=== PATIENT | female | born 1950 | race Caucasian/White ===

== ENCOUNTER 2019-03-06 12:11 | Inpatient (IN) ==
--- NOTE | 2019-03-06 13:14 | Diag Imaging Result Doc PS360 ---
EXAM: CHEST-2 VIEWS INDICATION: SOB TECHNIQUE: 2 views COMPARISON: 04/29/2015 FINDINGS: There is evidence of prior granulomatous disease, stable. There is mild scarring versus atelectasis at the left lung base. The right lung is clear. There is minimal blunting of the left costophrenic angle suggesting trace fluid versus chronic pleural scarring. There is prominent aneurysmal dilation of the thoracic aorta. An aortic stent is in place. There are new median sternotomy wires. Cardiac silhouette is borderline prominent. IMPRESSION: 1.Minimal left basilar atelectasis versus scarring and a possible trace effusion on the left. 2.Marked aneurysmal dilation of the thoracic aorta with a stent graft repair. Electronically signed by Ulises Quigley 03/06/2019 1:12 PM
[2019-03-06 15:29] LABS: BASO# 0.03 X1000 (0.0-0.2); BASO% 0.4 % (0.0-0.8); EOS# 0.19 X1000 (0.0-0.7); EOS% 2.5 % (0.0-10.0); HEMATOCRIT 44.6 % (37.0-47.0); LYMPH# 1.52 X1000 (1.2-3.4); LYMPH% 19.9 % (20.5-51.1); MCHC 31.4 g/dL (33-37); MCV 85.9 FL (81-99); MONO% 7.9 % (1.7-9.3); MPV 11.7 FL (7.4-10.4); NEUT% 69.3 % (42.2-75.2); PLT 187 X1000 (130-400); RBC 5.19 XMIL (4.2-5.4); RDW 18.1 % (11.5-14.5); WBC 7.64 X1000 (4.8-10.8)
[2019-03-06 15:34] LABS: INR 1.09; PROTIME 14.9 Seconds (11.0-16.0)
[2019-03-06 15:45] LABS: HEMOGLOBIN A1C 5.3 % (4.8-6.0)
[2019-03-06 15:51] LABS: ALB/GLOB RATIO 1.2; ALBUMIN 4.2 g/dL (3.5-5.0); CALCIUM 9.3 mg/dL (8.8-10.2); POTASSIUM 4.8 mmol/L (3.5-5.1); TOTAL BILIRUBIN 0.68 mg/dL (0.20-1.00); TOTAL PROTEIN 7.8 g/dL (6.3-8.3)
[2019-03-06 16:08] LABS: ALLEN TEST NO; BE 2.1 mmoll (-3.0-3.0); BLOOD TYPE ARTERIAL; HCO3-(ACT) 26.4 mmoll (20.0-26.0); METHB 0.5 % (0.0-1.5); O2HB 91.7 % (95.0-99.0); PCO2(98.6) 47 mmHg (35-45); PO2(98.6) 67 mmHg (60-100); SAMPLE BLOOD; SAO2 94.9 % (95.0-100.0); THB 11.6 g/dL (11.5-17.4); pH(98.6) 7.38 (7.35-7.45)
[2019-03-06 16:09] LABS: MODALITY ROOM AIR
--- NOTE | 2019-03-06 16:22 | EKG Report ---
Test Performed on : 03/06/2019 4:03:36 PM Test Reason : chest pain Blood Pressure : / mmHG Vent. Rate : 067 BPM Atrial Rate : 067 BPM P-R Int : 206 ms QRS Dur : 088 ms QT Int : 412 ms P-R-T Axes : 085 017 166 degrees QTc Int : 435 ms Normal sinus rhythm. Moderate voltage criteria for LVH, may be normal variant ST & T wave abnormality, consider inferolateral ischemia Abnormal ECG When compared with ECG of 29-APR-2015 13:52, ST now depressed in Lateral leads T wave inversion now evident in Anterolateral leads Confirmed by Jean Claude COSTA, Tyshawn Leblanc ([id number]) on 03/07/2019 10:57:14 AM
--- NOTE | 2019-03-06 17:03 | Diag Imaging Result Doc PS360 ---
EXAM: CT THORAX W/CONTRAST HISTORY: pneumonia TECHNIQUE: CT chest with intravenous contrast COMPARISON: 04/29/2015 FINDINGS: Trace pleural fluid. There is an aortic stent and sternal wires present. The proximal descending thoracic aorta measures 7.7 cm in AP diameter and 8.5 cm in transverse diameter. This has increased from 5.6 x 5.3 cm. The distal descending thoracic aorta measures 9.1 cm in maximum AP diameter and 8.4 cm in maximum transverse diameter. This has increased from prior measurements of 7.4 x 6.8 cm. No contrast outside of the stent. No pulmonary emboli. Mild cardiomegaly. There calcified mediastinal nodes. There is left basilar atelectasis. No pneumonia. IMPRESSION: 1.No infiltrates 2.Interval increase in the size of the descending thoracic aorta This exam was performed using automated exposure control, adjustment of mA or kV according to patient size, and/or use of iterative reconstruction technique. Electronically signed by John Joseph 03/06/2019 5:01 PM
[2019-03-06] MEDS: LASIX IV SCH (21:20)
[2019-03-06] MEDS: CARAFATE PO SCH (21:20)
[2019-03-06] MEDS: PRAVACHOL PO SCH (21:20)
[2019-03-06] MEDS: LOVENOX SUBQ SCH (21:20)
[2019-03-06] MEDS: VASOTEC IV SCH (21:20)
--- NOTE | 2019-03-06 21:58 | CONSULTATION ---
DATE OF CONSULTATION: 03/06/2019 IMPRESSION: 1. Congestive heart failure, predominantly right sided, with elevated central venous pressure. Echocardiography indicates moderate to severe pulmonary hypertension. Severe left ventricular hypertrophy demonstrated with estimated left ventricular ejection fraction at least 75%. There is moderate mitral regurgitation and moderate tricuspid regurgitation. 2. Thoracic and abdominal aortic aneurysm. The patient is status post multiple endovascular stent procedures. 3. Hypertensive cardiovascular disease with left ventricular hypertrophy. 4. Minimal coronary atherosclerosis by previous coronary angiography in 2007. 5. Chronic obstructive pulmonary disease. 6. Chronic cigarette use. 7. Hyperlipidemia. RECOMMENDATIONS: 1. Diurese with intravenous Lasix. 2. Smoking cessation strongly advised. HISTORY OF PRESENT ILLNESS: This 69-year-old white female with past history of hypertensive cardiovascular disease with left ventricular hypertrophy, thoracic and abdominal aortic aneurysm treated with multiple endovascular stent procedures, hyperlipidemia, minimal coronary atherosclerosis, and chronic cigarette use as well as COPD, was admitted with progressive lower extremity swelling over the past couple of months, with more recent development of increasing dyspnea with some orthopnea over the last 3 to 4 days. There has been no chest pain. She has been found to have evidence of congestive heart failure, and diuresis has been initiated. She was having problems with back pain back in August 2018 and was found to have a break in continuity of the stented regions within her thoracic to abdominal aortic aneurysm. She recalls having evaluation at [facility] and that her aneurysm was at least 8 cm dilated in this region. She had further endovascular stent placement to bridge across the area of incontinuity of stent. She has not had any further back discomfort. Beginning in November, she started to have some tendency for lower extremity swelling. This has significantly progressed over the last several weeks, and she has started to have shortness of breath and orthopnea over the last 3 to 4 days. There has been no chest pain. PAST MEDICAL HISTORY: 1. Hypertensive cardiovascular disease with significant left ventricular hypertrophy. 2. Thoracic and abdominal aortic aneurysms treated with multiple endovascular stents. 3. Hyperlipidemia. 4. Chronic obstructive pulmonary disease. 5. Chronic ongoing cigarette use, albeit at reduced rate. 6. Minimal coronary atherosclerosis by previous coronary angiography. PAST SURGICAL HISTORY: Includes multiple endovascular stent procedures for thoracic and abdominal aortic aneurysm, hysterectomy, tonsillectomy, unspecified back surgery, section, breast reduction surgery, left renal artery stent, and right shoulder surgery. ALLERGIES: She is allergic or intolerant of ibuprofen, nonsteroidal anti-inflammatory medications, and promethazine. MEDICATIONS PRIOR TO ADMISSION: As listed. SOCIAL HISTORY: She is a retired painting technician and previously worked at [employer]. She has a long history of cigarette use but has cut down to less than 5 cigarettes per day. FAMILY HISTORY: Strongly positive for aneurysms of the aorta. REVIEW OF SYSTEMS: Pulmonary: Noteworthy for dyspnea and some orthopnea. There has been no cough. Gastrointestinal: Noteworthy for some abdominal distention. Otherwise negative. Constitutional: Noteworthy for weight gain but otherwise negative. Remainder of review of systems negative/noncontributory with 14 total systems reviewed. PHYSICAL EXAMINATION: General: This is a thin, older white female in no distress on room air. Vital signs: Blood pressure 131/79, heart rate 76, oxygen saturation 96% on room air. HEENT: Extraocular movements intact. Mucous membranes moist. Neck: Supple. Neck: Jugular venous distention is significantly elevated with neck vein distention evident in front of right ear with patient lying recumbent at 45 degrees. There are no carotid bruits. Chest: Clear to auscultation. Cardiac Exam: Reveals a regular rate and rhythm with a grade 2/6 systolic murmur at the right upper sternal border. No gallop can be appreciated. Abdomen: Soft. Bowel sounds are normal. Extremities: Demonstrate moderate edema up to the knees bilaterally. Neurologic: Reveals her to be alert and fully oriented. Speech is fluent. She moves all 4 extremities equally well. Skin: Warm, dry. Psychiatric: Reveals her mood to be appropriate. ELECTROCARDIOGRAPHIC FINDINGS: Twelve-lead EKG demonstrates sinus rhythm and left ventricular hypertrophy with repolarization abnormality. LABORATORIES: Laboratory data includes a white blood cell count of 7.64, hematocrit 44.6, hemoglobin 14.0, platelet count 187,000. Pro time 14.9, INR 1.09. Sodium 140, potassium 4.8, chloride 103, carbon dioxide 27, BUN 18, creatinine 1.0. Magnesium 2.0. Pro B-natriuretic peptide level greater than 35,000. Albumin 4.2. TSH 3.66. Arterial blood gas: pH 7.3, pCO2 of 47, pO2 of 67 on room air. IMAGING STUDIES: Chest CT negative for evidence of pulmonary embolus. The patient has large thoracic aortic aneurysm. Endovascular stents appear to be present from the distal arch through the arch and through the distal thoracic aorta. There does not appear to be any leak of contrast. Atelectasis, left lower lobe, with possible small left pleural effusion demonstrated. Echocardiography reviewed and demonstrates left ventricular hypertrophy with estimated left ventricular ejection fraction at least 75%, without wall motion abnormality evident. Aortic valve sclerosis without stenosis demonstrated. There is moderate mitral regurgitation. There is moderate tricuspid regurgitation with estimated systolic PA pressure by Doppler of 70 to 75 mmHg. Biatrial enlargement is demonstrated. The right ventricle appears normal in size. The inferior vena cava is dilated, suggesting elevated central venous pressure. cc: MD Everardo Mitchell MD
--- NOTE | 2019-03-06 22:38 | HISTORY AND PHYSICAL ---
CHIEF COMPLAINT: Dyspnea on exertion, PND, orthopnea, swelling of legs and the abdomen for the last 1 week, slowly worsening. HISTORY OF PRESENT ILLNESS: She is a 69-year-old white female, was seen in my office this week with the above symptoms. Patient has elevated JVD. She also has new onset of diastolic murmur, mostly leading towards forward in the left lower sternal border. She has 4+ pedal edema. Patient had outpatient workup done on Sunday with echocardiography, results are pending. Symptoms are worsening. Admitted in [facility] for new onset of congestive heart failure. Patient also has ascending aorta thoracic aneurysm with endovascular graft. I am suspecting there may be aortic insufficiency and see the LV function. I spoke to Dr. Fernández, he is going to look at the echocardiogram. The patient was started on IV Lasix, fluid restrictions, and daily weights, and based on the echo and further recommendations, will be followed. PAST MEDICAL HISTORY: Aneurysm of aorta with thoracic abdominal wall, status post endovascular graft repair, mild COPD, hypertension, acid reflux disease with esophagitis, hyperlipidemia, chronic back pain status post epidural steroid injection by Dr. Tai at [facility], history of smoking, overactive bladder, subclavian stenosis on the left, history of kidney stones. PAST SURGICAL HISTORY: Bilateral breast reduction, AAA graft with left renal artery stent, tonsillectomy, left breast biopsy, hysterectomy, , back surgeries x3, right shoulder replacement, aorto left carotid bypass surgery 2017, aorto left subclavian artery bypass, left vocal cord injection. MEDICATIONS: Aspirin, Plavix, Prevacid, losartan 100 mg daily, metoprolol 100 daily, Protonix 40 daily, Zocor 40 daily, tramadol 50 three times daily, tolterodine tartrate 4 mg once daily. ALLERGIES: Reported to NSAIDs, Advil, and Phenergan. SOCIAL HISTORY: Smoking half a pack a day. No alcohol. No drug abuse. Lives in [place]. , 2 children. Obviously, her is also sick in [facility]. FAMILY HISTORY: Father of abdominal aneurysm at 69. Mom of thoracic aneurysm. Brothers had diabetes. HEALTH MAINTENANCE: Flu vaccine 2018, pneumococcal 2014, mammography 2018, DEXA scan 2014, last colonoscopy [address] Coker with diverticular bleeding. REVIEW OF SYSTEMS: HEENT: No headache, no vision problem, no earache, no sore throat. Neck: No goiter, no lymphadenopathy, no bruit. Chest: No chest pain, dyspnea on exertion, PND, orthopnea. Abdomen: Swelling of the abdomen and the legs. Genitourinary: No history of hesitancy, frequency, dysuria. Musculoskeletal: Chronic back pain. Neurological: No neurological symptoms or weakness, seizures. PHYSICAL EXAMINATION: VITAL SIGNS: Temperature is 97.9 degrees, pulse 73, blood pressure 169/70, 97% on room air. 5 feet 6 inches, 144 pounds. GENERAL: The patient is in mild respiratory distress. HEENT: Atraumatic, normocephalic. Pupils equal, react to light. TMs are normal. Nose and throat within normal limits. JVD is elevated. CHEST: Bilateral air entry. HEART: Sounds are tachycardic with a gallop, with 2/6 diastolic murmur in the left lower sternal border, mostly pronounced with leaning followed. ABDOMEN: Belly is soft, distended abdomen. EXTREMITIES: 3+ pedal edema in both legs. NEUROLOGICAL: No obvious neurological deficits noted. INVESTIGATIONS: CBC: White cell count 7.6, hematocrit 44, platelets 187,000. PT/INR is normal. ABG: pH is 7.38, pCO2 of 47, PO2 of 67 on room air. SMA-7: Sodium 140, potassium 4.8, chloride 103 BUN 18, creatinine 1.0. Liver function tests were normal. Magnesium was normal. Troponin was normal. ProBNP 35134. B12, TSH are normal. Chest x-ray: Minimal left basilar atelectasis, possible effusion, marked aneurysmal dilatation of the thoracic aorta with a stent graft repair. EKG: Normal sinus and LVH by voltage criteria. Chest CT: No infiltrates, interval increasing in size descending thoracic aorta, which measured 9.1 cm. No contrast outside of stent. No pulmonary emboli. Mild cardiomegaly. No pneumonia. ASSESSMENT AND PLAN: 1. A 69-year-old white female admitted to the hospital with elevation of JVD, massive pedal edema, new onset of diastolic murmur with aneurysm, rule out aortic insufficiency. Check the left ventricle function. Discussed with Dr. Fernández. In the meantime, fluid restrictions, daily weights, IV Lasix, Pavon catheter. 2. Hyperlipidemia, on Pravachol. 3. Ascending/descending thoracic aneurysm status post graft, slightly increasing. 4. Deep venous thrombosis prophylaxis with Lovenox, and currently patient is on Vasotec IV q.12 hours and metoprolol. 5. Gastrointestinal prophylaxis with Protonix and Carafate. 6. Chronic back pain, with [place] and baclofen as needed. Will follow up. cc: Everardo Abdi MD
[2019-03-07 04:17] LABS: BASO# 0.03 X1000 (0.0-0.2); BASO% 0.4 % (0.0-0.8); EOS# 0.22 X1000 (0.0-0.7); EOS% 2.6 % (0.0-10.0); HEMATOCRIT 39.6 % (37.0-47.0); HEMOGLOBIN 12.5 g/dL (12.0-16.0); LYMPH# 1.37 X1000 (1.2-3.4); MCHC 31.6 g/dL (33-37); MCV 85.5 FL (81-99); MONO# 0.91 X1000 (0.11-0.59); MONO% 10.7 % (1.7-9.3); MPV 10.9 FL (7.4-10.4); NEUT# 6.01 X1000 (1.4-6.5); NEUT% 70.3 % (42.2-75.2); PLT 164 X1000 (130-400); RBC 4.63 XMIL (4.2-5.4); WBC 8.54 X1000 (4.8-10.8)
[2019-03-07 04:39] LABS: ALB/GLOB RATIO 1.2; ALBUMIN 3.7 g/dL (3.5-5.0); CALCIUM 9.3 mg/dL (8.8-10.2); POTASSIUM 4.5 mmol/L (3.5-5.1); TOTAL BILIRUBIN 0.62 mg/dL (0.20-1.00); TOTAL PROTEIN 6.8 g/dL (6.3-8.3)
[2019-03-07] MEDS: PROTONIX PO SCH (06:18)
[2019-03-07] MEDS: LASIX IV SCH ×2 (08:37→20:43)
[2019-03-07] MEDS: ASPIRIN EC PO SCH (08:37)
[2019-03-07] MEDS: PLAVIX PO SCH (08:37)
[2019-03-07] MEDS: TOPROL XL PO SCH (08:38)
[2019-03-07] MEDS: CARAFATE PO SCH ×4 (08:38→20:48)
[2019-03-07] MEDS: VASOTEC IV SCH ×2 (09:02→20:44)
--- NOTE | 2019-03-07 19:58 | PROGRESS NOTE ---
DATE: 03/07/2019 SUBJECTIVE: The patient is doing much better. Excellent diuresis. Blood pressure is doing very well. No chest pain. Decreased shortness of breath. Appreciated Dr. Fernández consult. EXAM: Temperature is 97 degrees, pulse 79, blood pressure 107/53, 95% on room air and I's and O's are so far -3 L. JVD is decreased. Chest is clear. Heart sounds are regular. I did not hear any diastolic murmur. Belly is soft, nontender and decreased peripheral edema. LABS: CBC. White cell count 8.5, hematocrit 39, platelets 164,000. SMA 7 is normal. Creatinine 1.0, glucose 108. A1c 5.3. B12, TSH is normal. Urine cultures are negative. ASSESSMENT AND PLAN: 1. Acute congestive heart failure, presumed to be diastolic dysfunction with pulmonary hypertension. 2. Aneurysm of ascending and thoracic aorta. 3. Chronic obstructive pulmonary disease. Plan is as per Dr. Fernández. Continue IV diuresis. We will use Vasotec as needed, aspirin, Plavix, pravastatin, metoprolol and deep vein thrombosis prophylaxis with Lovenox. Dr. Fernández canceled the venous Dopplers since the pulmonary embolism was negative and continue the diuresis and will follow up and also will get official report of echocardiography report. LEVEL OF DOCUMENTATION: 25 minutes. cc: Everardo Abdi MD
[2019-03-07] MEDS: PRAVACHOL PO SCH (20:43)
[2019-03-07] MEDS: LOVENOX SUBQ SCH (20:44)
[2019-03-07] MEDS: NORCO-10 PO PRN (22:22)
[2019-03-07] MEDS: LIORESAL PO SCH (22:23)
[2019-03-08] MEDS: PROTONIX PO SCH (06:03)
[2019-03-08 06:29] LABS: CREATININE 1.3 mg/dL (0.5-0.9); MAGNESIUM 1.7 mg/dL (1.5-2.7); POTASSIUM 4.2 mmol/L (3.5-5.1)
[2019-03-08] MEDS: VASOTEC IV SCH (08:53)
[2019-03-08] MEDS: ASPIRIN EC PO SCH (08:54)
[2019-03-08] MEDS: CARAFATE PO SCH ×4 (08:54→20:45)
[2019-03-08] MEDS: TOPROL XL PO SCH (08:54)
[2019-03-08] MEDS: PLAVIX PO SCH (08:54)
[2019-03-08] MEDS ORDERED: LASIX IV SCH (09:00)
--- NOTE | 2019-03-08 09:10 | Extremity Venous Study ---
PROCEDURE NAME: Venous U/S Bilateral Legs - 03/06/2019 WIRELESS TEAM MEMBER: Karthik. REQUESTING PHYSICIAN: Olga Lidia Abdi MD INDICATIONS: Edema. FINDINGS: The deep superficial veins of bilateral lower extremities were visualized along their course. All vessels appeared compressible with forward flow. No evidence of intraluminal thrombus. There was reflux noted proximally at the common femoral vein. SUMMARY: No deep or superficial venous thrombosis seen. cc: MD Everardo Cardenas MD
[2019-03-08] MEDS: NORCO-10 PO PRN ×2 (14:09→21:36)
--- NOTE | 2019-03-08 19:09 | PROGRESS NOTE ---
DATE: 03/08/2019 SUBJECTIVE: The patient is doing better. Excellent diuresis, decreased shortness of breath and Pavon has some bloody tinge noted. OBJECTIVE: Vital Signs: On examination, temperature is 97.8, pulse is 73, blood pressure is 124/57, 142 pounds. I and O's negative so far, -7 Liters. Neck: JVD decreased. Chest: Bilateral air entry. Cardiac: Heart sounds decreased gallop. No diastolic murmur noted. LABS: SMA-7: Sodium 144, potassium 4.2, chloride 101, BUN 24, creatinine 1.3. ASSESSMENT: 1. Congestive heart failure due to diastolic dysfunction with pulmonary hypertension improving, - 7 L of fluid. 2. Thoracic ascending abdominal aortic aneurysm, status post endovascular graft repair stable. 3. Chronic obstructive pulmonary disease stable. PLAN OF CARE: 1. Discontinue Pavon. 2. Discussed about nicotine cessation program. 3. Decreased Lasix once daily. 4. Follow up on urine cultures were negative. 5. We will get the official report of echocardiography. 6. Continue on aspirin, Plavix, Pravachol, baclofen for spasms. Encouraged ambulation and if this is a bleeding issue, we will discontinue Lovenox. We will check the CBC, BMP in the morning. LEVEL OF DOCUMENTATION: 25 minutes. cc: Everardo Abdi MD
[2019-03-08] MEDS: LOVENOX SUBQ SCH (20:45)
[2019-03-08] MEDS: PRAVACHOL PO SCH (20:46)
[2019-03-08] MEDS: LIORESAL PO SCH (20:46)
[2019-03-09 05:30] LABS: BASO# 0.03 X1000 (0.0-0.2); BASO% 0.5 % (0.0-0.8); EOS# 0.23 X1000 (0.0-0.7); EOS% 4.2 % (0.0-10.0); HEMATOCRIT 35.1 % (37.0-47.0); HEMOGLOBIN 10.9 g/dL (12.0-16.0); LYMPH# 1.68 X1000 (1.2-3.4); LYMPH% 30.5 % (20.5-51.1); MCHC 31.1 g/dL (33-37); MCV 86.9 FL (81-99); MONO# 0.58 X1000 (0.11-0.59); MONO% 10.5 % (1.7-9.3); NEUT# 2.98 X1000 (1.4-6.5); NEUT% 54.3 % (42.2-75.2); PLT 161 X1000 (130-400); RBC 4.04 XMIL (4.2-5.4)
[2019-03-09 05:49] LABS: CALCIUM 8.8 mg/dL (8.8-10.2); CREATININE 1.3 mg/dL (0.5-0.9); POTASSIUM 4.3 mmol/L (3.5-5.1)
[2019-03-09] MEDS: NORCO-10 PO PRN ×2 (06:39→21:46)
[2019-03-09] MEDS: PROTONIX PO SCH (06:39)
--- NOTE | 2019-03-09 07:57 | CARDIOLOGY PROGRESS NOTE ---
DATE: 03/08/2019 SUBJECTIVE: She reports feeling much better. Her orthopnea and lower extremity edema have improved. PHYSICAL EXAMINATION: Vital Signs: Afebrile. Heart rate 76, blood pressure 101/43. Is and Os: She is a net negative out of 5.2 L. General: She is in no acute distress. Cardiovascular: She sounds to be in a regular rate and rhythm. She has no murmurs. She has trace to 1+ bilateral lower extremity edema, and warm and well perfused extremities. Her chest exam sounds relatively clear to auscultation bilaterally. She has no increased work of breathing. Abdomen: Soft, nontender, nondistended. She has no obvious organomegaly. ASSESSMENT: Ms. Pompa is a 69-year-old female with a history of thoracic aneurysm who presents with complaints of shortness of breath. PLAN: Her chest CT demonstrated no infiltrate, suggesting that she had predominantly right-sided failure. Her proBNP was markedly elevated. She has had an elevation in her creatinine from 1 to 1.3 today, suggesting that she is a bit on the dry side. I will stop her IV diuretics and place her on oral. I will stop her IV enalapril and place her on 10 mg of lisinopril in the morning. She is already on a beta-eloy, considering her history of aneurysms. At this point, we will check laboratories in the morning. Dr. Fernández will be back to see the patient on Sunday. cc: MD Everardo Richey MD
[2019-03-09] MEDS: PLAVIX PO SCH (08:40)
[2019-03-09] MEDS: PRINIVIL PO SCH (08:40)
[2019-03-09] MEDS: ASPIRIN EC PO SCH (08:40)
[2019-03-09] MEDS: CARAFATE PO SCH ×4 (08:40→21:53)
[2019-03-09] MEDS: TOPROL XL PO SCH (08:40)
[2019-03-09] MEDS: LASIX PO SCH (08:40)
--- NOTE | 2019-03-09 11:48 | PROGRESS NOTE ---
DATE: 03/09/2019 VITAL SIGNS: Temperature 98.1 degrees, heart rate 72, respirations 18, blood pressure 138/54, O2 saturation on room air 95%. LABORATORY: Sodium 143, potassium 4.3, BUN 27, creatinine 1.3, glucose 71. ProBNP 23,245, down from greater than 35,000. The patient says she feels better with less shortness of breath, but complains of pain in the area of her scar related to thoracic aortic aneurysm surgery. She has been followed by Dr. Fernández. She was changed to p.o. medications yesterday. Chest CT on 03/06/2019 revealed no pulmonary infiltrates, but interval increase in size of descending thoracic aorta at 7.7 cm in AP diameter and 8.5 in transverse diameter. This was increased from 5.6 x 5.3. Distal descending thoracic aorta measured 9.1 cm maximum AP diameter and 8.4 cm transverse diameter. That had increased from prior measurements of 7.4 x 6.8 cm. PLAN: Continue current therapy and re-evaluation by Dr. Fernández tomorrow morning. cc: MD Everardo Bey MD
[2019-03-09] MEDS: PRAVACHOL PO SCH (20:04)
[2019-03-09] MEDS: LIORESAL PO SCH (20:04)
[2019-03-09] MEDS: LOVENOX SUBQ SCH (20:04)
[2019-03-10] MEDS: PROTONIX PO SCH (06:10)
[2019-03-10] MEDS: LASIX PO SCH (08:36)
[2019-03-10] MEDS: PLAVIX PO SCH (08:36)
[2019-03-10] MEDS: ASPIRIN EC PO SCH (08:36)
[2019-03-10] MEDS: PRINIVIL PO SCH (08:36)
[2019-03-10] MEDS: TOPROL XL PO SCH (08:36)
[2019-03-10] MEDS: NORCO-10 PO PRN ×2 (09:22→21:46)
[2019-03-10] MEDS: CARAFATE PO SCH ×3 (09:32→21:46)
--- NOTE | 2019-03-10 19:15 | PROGRESS NOTE ---
DATE: 03/10/2019 SUBJECTIVE: Interval history was reviewed. Patient has excellent diuresis. Complains of orthopnea, swelling of the abdomen. Dr. Villagomez changed the medicine to Lasix 40 daily. She did give the CDs from the 08/[address] scan in [facility]. I have to compare those x-rays with the radiologist about the aneurysm size. Venous Dopplers were negative. OBJECTIVE: Vital signs: Temperature is 97 degrees, pulse 65. Vitals are stable. Ins and outs are -800. HEENT Exam: Within normal limits. Neck: JVD is elevated. Heart: No murmurs. Regular heart sounds. Abdomen: Belly is soft, nontender. Extremities: 1+ pedal edema. LABORATORY DATA: None reported. ProBNP was coming down. ASSESSMENT AND PLAN: 1. Congestive heart failure due to diastolic dysfunction with pulmonary hypertension. Change the Lasix to 40 daily. 2. We will recheck the reports from the thoracic aneurysm from the previous reports. 3. Continue present treatment. We will discuss with fire operations forester about the plan. Currently on metoprolol and lisinopril. 4. We will hold the discharge until I see these CT scan reports, and we will follow up. LEVEL OF DOCUMENTATION: 25 minutes. cc: Everardo Abdi MD
[2019-03-10] MEDS: LOVENOX SUBQ SCH (21:44)
[2019-03-10] MEDS: LIORESAL PO SCH (21:45)
[2019-03-10] MEDS: PRAVACHOL PO SCH (21:45)
[2019-03-11] MEDS: PROTONIX PO SCH (06:15)
[2019-03-11] MEDS: PLAVIX PO SCH (11:44)
[2019-03-11] MEDS: TOPROL XL PO SCH (11:44)
[2019-03-11] MEDS: ASPIRIN EC PO SCH (11:44)
[2019-03-11] MEDS: PRINIVIL PO SCH (11:44)
[2019-03-11] MEDS: LASIX PO SCH (11:44)
[2019-03-11] MEDS: CARAFATE PO SCH ×4 (11:45→21:14)
[2019-03-11 13:06] LABS: URINE SOURCE CLEAN CATCH
[2019-03-11 13:15] LABS: BILIRUBIN URINE NEGATIVE (NEGATIVE); BLOOD URINE MODERATE (NEGATIVE); COLOR YELLOW; GLUCOSE URINE NEGATIVE (NEGATIVE); KETONE URINE NEGATIVE (NEGATIVE); LEUKOCYTES URINE NEGATIVE (NEGATIVE); NITRITE URINE NEGATIVE (NEGATIVE); PROTEIN URINE NEGATIVE (NEGATIVE); TURBIDITY URINE CLEAR (CLEAR); UROBILINOGEN URINE NORMAL (NORMAL)
[2019-03-11 13:17] LABS: UR EPITHELIAL CELLS <10 /HPF (<10); URINE BACTERIA NEGATIVE /HPF; URINE RBC TNTC /HPF (<10); URINE WBC <10 /HPF (<10)
--- NOTE | 2019-03-11 19:30 | PROGRESS NOTE ---
DATE: 03/11/2019 SUBJECTIVE: Patient denies shortness of breath or chest discomfort on room air. OBJECTIVE: Vital Signs: Blood pressure 131/54, heart rate 73 and regular, oxygen saturation 96% on room air. Neck: Jugular venous distention suggests JVP around 10 cm. Chest: Clear to auscultation bilaterally. Cardiac: Reveals a regular rate and rhythm without appreciable murmur or gallop. Extremities: Demonstrate trace edema. LABORATORY DATA: Includes urinalysis which is benign. IMPRESSION: 1. Acute congestive heart failure, predominantly right-sided congestive heart failure related to pulmonary hypertension. The patient also has left hypertrophy secondary to hypertensive cardiovascular disease and associated diastolic dysfunction. She appears to have improved significantly from diuresis. 2. Thoracic and abdominal aortic aneurysm with history of multiple endovascular stent procedures. CT scan this admission demonstrates impressive enlargement of aortic aneurysm, but endovascular repair appears to be intact without evidence of leak. It is noteworthy that patient recalls having acute intervention on her aortic aneurysm in the vicinity of the thoracic aorta where it joins the abdominal aorta after she presented with acute back pain. She recalls having significant enlargement of aortic aneurysm to above 8 cm in August 2018. Above scans were performed at [facility]. Current studies appear to have changed little from those values. 3. Hypertensive cardiovascular disease with left ventricular hypertrophy. 4. Minimal coronary atherosclerosis by previous coronary angiography in 2007. 5. Chronic obstructive pulmonary disease. 6. Chronic cigarette use. 7. Hyperlipidemia. RECOMMENDATIONS: 1. Agree with switching to oral Lasix. 2. Smoking cessation reinforced. 3. Patient appears to have improved significantly and sufficient for her to be discharged home tomorrow. cc: MD Everardo Mitchell MD
[2019-03-11] MEDS: LIORESAL PO SCH (21:13)
[2019-03-11] MEDS: PRAVACHOL PO SCH (21:13)
[2019-03-11] MEDS: LOVENOX SUBQ SCH (21:13)
--- NOTE | 2019-03-11 22:05 | PROGRESS NOTE ---
DATE: 03/11/2019 SUBJECTIVE: I spoke to Dr. Padilla about the echo findings, and obviously patient has a little bit of orthopnea and swelling of the abdomen. Dr. Padilla reviewed the echo, showing severe pulmonary hypertension, diastolic dysfunction, LVH. He wants to rule out cardiac amyloidosis. The patient has been scheduled for serum free light chain ratio and technetium pyrophosphate scan. PHYSICAL EXAMINATION: Vital Signs: Temperature 98 degrees, pulse 73, blood pressure stable. HEENT: Within normal limits. Chest: Clear. Heart: Sounds are regular. No murmur. Abdomen: Belly is soft, nontender. Extremities: No edema. ASSESSMENT AND PLAN: 1. Diastolic heart failure with pulmonary hypertension. 2. Thoracic aortic aneurysm. I did review the CT scans from [facility] with the recent CT. There is no enlargement of the aorta. Ascending aorta is about 4.[address] Padilla is arranging the rule out cardiac amyloidosis. 3. Continue p.o. Lasix and I am going to check the labs in the morning. 4. Patient complains of dysuria. We will also get the urine culture and will follow up. LEVEL OF DOCUMENTATION: 25 cc: Everardo Abdi MD MTDD
[2019-03-12] MEDS: PROTONIX PO SCH ×2 (05:53→06:07)
[2019-03-12 06:08] LABS: HEMATOCRIT 37.5 % (37.0-47.0); HEMOGLOBIN 11.6 g/dL (12.0-16.0); MCH 27.1 PG (27-31); MCHC 30.9 g/dL (33-37); MCV 87.6 FL (81-99); MPV 12.1 FL (7.4-10.4); RBC 4.28 XMIL (4.2-5.4); RDW 17.8 % (11.5-14.5); WBC 6.75 X1000 (4.8-10.8)
[2019-03-12 06:12] LABS: ALB/GLOB RATIO 1.2; ALBUMIN 3.2 g/dL (3.5-5.0); CALCIUM 8.9 mg/dL (8.8-10.2); CREATININE 1.2 mg/dL (0.5-0.9); POTASSIUM 4.2 mmol/L (3.5-5.1); TOTAL BILIRUBIN 0.54 mg/dL (0.20-1.00); TOTAL PROTEIN 5.8 g/dL (6.3-8.3)
[2019-03-12] MEDS: ASPIRIN EC PO SCH (09:00)
[2019-03-12] MEDS: CARAFATE PO SCH (09:00)
[2019-03-12] MEDS: PLAVIX PO SCH (09:01)
[2019-03-12] MEDS: PRINIVIL PO SCH (09:01)
[2019-03-12] MEDS: NORCO-10 PO PRN (09:01)
[2019-03-12] MEDS: TOPROL XL PO SCH (09:01)
[2019-03-12] MEDS: LASIX PO SCH (09:01)
[2019-03-12 09:24] VITALS: BP 111/54
--- NOTE | 2019-03-15 21:47 | DISCHARGE SUMMARY ---
ADMISSION DATE: 03/06/2019 DISCHARGE DATE: 03/12/2019 DISCHARGING DIAGNOSIS: Congestive heart failure due to diastolic dysfunction with severe pulmonary hypertension, etiology to be determined. SECONDARY DIAGNOSIS: 1. Chronic obstructive pulmonary disease. 2. Hypertension. 3. Acid reflux disease with esophagitis. 4. Hyperlipidemia. 5. Chronic back pain due to spondylosis. 6. Tobacco abuse. 7. Overactive bladder. 8. History of kidney stones. 9. Subclavian stenosis on the left side. 10. Thoracic abdominal aortic aneurysm status post endovascular graft. 11. Left renal artery stent. 12. Abdominal aortic aneurysm graft. CONSULTS: 1. Dr. Fran Fernández. PROCEDURES: 1. Outpatient echocardiography. Findings are: Severe left ventricular hypertrophy. LV systolic function is 60 to 70 percent. Severe pulmonary hypertension with diastolic dysfunction. 2. Extremity venous studies, no evidence of DVT. 3. Chest CT: No pulmonary embolism. No infiltrates. Stable size of descending thoracic aorta with endovascular graft. Ascending aorta is about 45 mm. 4. Serum free light chain ratio is abnormal. HISTORY OF PRESENT ILLNESS: In brief, she is a 69-year-old white female with the above problems. Came my office with dyspnea on exertion, PND, orthopnea, swelling of the abdomen, swelling of the legs. The patient had a gallop with a diastolic murmur, elevated JVD and 3+ pedal edema. Chest x- ray showed aneurysm of thoracic and descending aorta. ProBNP was more than 35,000. HOSPITAL COURSE: The patient was started on fluid restrictions, daily weights, low salt, IV Lasix. She had excellent diuresis of 8 L removed. The patient was euvolemic. The diastolic murmur disappeared. Echocardiography showed severe left ventricular hypertrophy and diastolic dysfunction with restrictive cardiac disease. The patient has underlying hypertension and COPD. Dr. Padilla recommended to rule out amyloidosis, cardiac type. Serum free light chain ratio was abnormal. Plan of care is for outpatient technetium pyrophosphate scan versus cardiac MRI or biopsy. Will do workup as an outpatient. The patient was ruled out for pulmonary embolism. DVT studies were negative as well as CT pulmonary angiogram. At the time of discharge, the patient was stable. Blood pressure was 110/54, weight 132 pounds. DISCHARGE MEDICATIONS: Carafate 1 gram 4 times daily, Protonix 40 daily, Plavix 75 daily, metoprolol-XL 100 daily, aspirin 81 mg daily, baclofen 10 at bedtime, [place] 10 every 6 hours as needed for pain, pravastatin 20 mg daily, lisinopril 10 mg daily, Lasix 40 daily. FOLLOWUP: Follow up in my office in 10 days as well as with Dr. Padilla. cc: MD Josue Ortiz MD Luis N. Villanueva, MD William D. Denney, MD
== END 2019-03-12 11:33 | disposition home or self-care (01) | DRG 291 ==
LOC: 3S 15:10
PROVIDERS: ADMIT Internal Medicine; ATTEND Internal Medicine
CPT/HCPCS: 71020; 71046; 71260; 80048; 80053; 81001; 82550; 82607; 82805; 83036; 83735; 83880; 83883; 84443; 84484; 85025; 85027; 85610; 87088; 93005; 93010; 93306; 93970; A9270; J1650; J1940; Q9967